=== PATIENT | male | born 1950 | race Two or more races ===

== ENCOUNTER 2020-12-16 10:06 | Emergency (ER) | payer OTHER ==
[~2020-12-16] VITALS: Ht 182.9 cm; Wt 68.0 kg
[2020-12-16] MEDS ORDERED: ZOCOR20 MG (10:30)
== END 2020-12-16 19:43 | disposition home or self-care (01) ==
LOC: ER 10:06
DX: K62.5 Hemorrhage of anus and rectum (principal)

== ENCOUNTER 2021-10-17 10:20 | Outpatient (CLI) | payer OTHER ==
[~2021-10-17 10:20] MED LIST: ZOCOR20 MG
== END 2021-10-17 10:30 | disposition home or self-care (01) ==
LOC: PPH VACUNA 10:20
PROVIDERS: ATTEND Emergency Medicine Pediatric Emergency Medicine
DX: Z23 Encounter for immunization (principal)

== ENCOUNTER 2024-07-08 12:57 | Outpatient (CLI) | payer OTHER | END 2024-07-08 13:06 | disposition home or self-care (01) | LOC: RAD 12:57 | PROVIDERS: ATTEND Internal Medicine | DX: G57.62 Lesion of plantar nerve, left lower limb (principal) ==

== ENCOUNTER 2024-12-28 15:19 | Inpatient (IN) | payer OTHER ==
[~2024-12-28] VITALS: Ht 185.4 cm; Wt 72.6 kg
--- NOTE | 2024-12-28 16:16 | NUR ---
PACIENTE ALOERTA Y ORIENTADO X 3. REFIERE PRESENTO FIEBRE EN LA MANANA Y SE COMUNICO CON DR Adam BAUMANN QUIEN LE INDICO VISITAR ER. REFIERE DOLRO DE SHOBHA Y DEBILIDAD.
[2024-12-28] MEDS ORDERED: TAMS0.4C PO (16:20)
[2024-12-28] MEDS ORDERED: PEPCID AC10 MG (16:20)
[2024-12-28] MEDS ORDERED: ZYRTEC10 MG PO (16:20)
[2024-12-28] MEDS ORDERED: CEFTRIAXONE SODIUM 2,000 MG VIAL IV ONE (17:30)
[2024-12-28 18:25] LABS: BASO % 0.3 % (0.1-1.2); EOS # 0.02 (0.04-0.54); EOS % 0.1 % (0.7-7.0); LYMPH # 0.72 (1.18-3.74); LYMPH % 4.7 % (19.3-53.1); MEAN PLATELET VOLUME 11.60 fl (9.4-12.4); MONO # 1.26 (0.24-0.82); MONO % 8.3 % (4.7-12.5); NEUT # 13.14 (1.56-6.13); NEUT % 86.2 % (34.0-71.1); RED CELL DISTRIBUTION WIDTH 14.1 % (11.6-14.4)
--- NOTE | 2024-12-28 18:26 | NUR ---
SE ORIENTA PTE SOBRE [place] MEDICO Y PTE REFIERE ENTENDER. SE TORIE MUESTRAS DE LAB Y SE ADMINISTRAN MEDICAMENTOS DWIGHT ORDEN MEDICA BAJO MEDIDAS ASEPTICAS. SE UBICA PTE EN K1.
[2024-12-28 18:47] LABS: INR 1.05
[2024-12-28 19:02] LABS: ALT/SGPT 79.0 U/L (12-78); AST/SGOT 65.0 U/L (15-37); BILIRUBIN TOTAL 0.69 mg/dL (0.3-1.2); BUN CREA RATIO 29.0 (7.0-25.0); CREATININE SERUM 0.98 mg/dL (0.70-1.30); GFR 74.36; GLOBULINA 3.1 G/DL (2.4-3.5); GLUCOSE FASTING 132.0 mg/dL (65-100); OSMOLALITY SERUM 292.0 MOSM/KG (275-295)
[2024-12-28 19:39] LABS: ERYTHROCYTE SEDIMENTATION RATE 12 mm/hr (0-20)
[2024-12-28] MEDS ORDERED: FAMOTIDINE/PF 20 MG in 0.9 % SODIUM CHLORIDE 8 ML IV PUSH SCH (22:13)
[2024-12-28] MEDS ORDERED: 0.9 % SODIUM CHLORIDE 1,000 ML IV SCH (22:15)
[2024-12-28] MEDS ORDERED: ACETAMINOPHEN 500 MG GEL..CAP PO PRN (22:15)
[2024-12-28] MEDS ORDERED: VANCOMYCIN HCL 1,000 MG VIAL IV SCH (22:24)
[2024-12-29] MEDS ORDERED: PIPERACILLIN/TAZOBACTAM SODIUM 3.375 GM in DEXTROSE 5 % IN WATER 100 ML IV SCH
[2024-12-29 01:51] VITALS: BP 125/67; O2SAT 95
[2024-12-29 02:42] LABS: URINE APPEARANCE Clear; URINE BILIRRUBIN Negative (NEGATIVE); URINE BLOOD NHT; URINE COLOR Yellow; URINE GLUCOSE Negative (NEGATIVE); URINE KETONE 15 (NEGATIVE); URINE LEUKOCYTE Negative; URINE NITRATE Negative; URINE PROTEIN Trace (NEGATIVE); URINE UROBILINOGEN 1.0 E.U./dl
[2024-12-29 02:45] LABS: URINE BACTERIA 13.1 uL (0.0-1933); URINE EPITHELIAL CELLS 7.6 uL (0.0-38.8); URINE RBC 26.3 uL (0.0-20.8); URINE WBC 10.4 uL (0.0-23.2)
[2024-12-29 02:47] LABS: URINE CAST 0.00 uL (0.0-1.40)
[2024-12-29 02:50] VITALS: BP 146/64; O2SAT 97
[2024-12-29 08:00] VITALS: BP 111/68; O2SAT 95
[2024-12-29] MEDS ORDERED: CEFTRIAXONE SODIUM 2,000 MG in 0.9 % SODIUM CHLORIDE 100 ML IV SCH (09:00)
[2024-12-29] MEDS ORDERED: ENOXAPARIN SODIUM 40 MG/0.4 ML SYRINGE SUBCUTANEO SCH (09:00)
[2024-12-29] MEDS ORDERED: TAMSULOSIN HCL 0.4 MG CAP PO SCH (09:00)
[2024-12-29] MEDS ORDERED: PIPERACILLIN/TAZOBACTAM SODIUM 3.375 GM in 0.9 % SODIUM CHLORIDE 100 ML IV SCH (12:52)
[2024-12-29 16:00] VITALS: BP 121/69; O2SAT 97
[2024-12-29] MEDS ORDERED: SILVER SULFADIAZINE 50 GM,ZINC OXIDE 30 GM TOP SCH (17:00)
[2024-12-29] MEDS ORDERED: SIMVASTATIN 10 MG TABLET PO SCH (17:00)
[2024-12-29] MEDS ORDERED: VANCOMYCIN HCL 1,000 MG VIAL IV SCH (21:00)
[2024-12-30 07:48] LABS: BASO % 0.6 % (0.1-1.2); EOS # 0.13 (0.04-0.54); EOS % 1.8 % (0.7-7.0); LYMPH # 0.80 (1.18-3.74); LYMPH % 11.2 % (19.3-53.1); MEAN PLATELET VOLUME 11.90 fl (9.4-12.4); MONO # 1.03 (0.24-0.82); NEUT # 5.12 (1.56-6.13); NEUT % 71.4 % (34.0-71.1); RED CELL DISTRIBUTION WIDTH 14.2 % (11.6-14.4)
[2024-12-30 07:57] LABS: MONO % 14.4 % (4.7-12.5)
[2024-12-30 08:34] LABS: ALT/SGPT 78.0 U/L (12-78); AST/SGOT 42.0 U/L (15-37); BILIRUBIN TOTAL 0.5 mg/dL (0.3-1.2); BUN CREA RATIO 13.0 (7.0-25.0); CREATININE SERUM 1.04 mg/dL (0.70-1.30); GFR 69.43; GLOBULINA 2.9 G/DL (2.4-3.5); GLUCOSE FASTING 111.0 mg/dL (65-100); OSMOLALITY SERUM 288.0 MOSM/KG (275-295)
[2024-12-30 08:38] LABS: PROSTATIC SPECIFIC ANTIGEN 10.4 NG/ML (0.010-4.00)
[2024-12-30 08:40] LABS: BAND MAN 6.0 %; EOSINOPHIL MAN 1.0 %; LYMPHOCYTE MAN 19.0 %; MONOCYTE MAN 6.0 %; NEUTROPHILS MAN 65.0 %
[2024-12-30 10:56] VITALS: BP 104/69; O2SAT 97
[2024-12-30] MEDS ORDERED: CLOTRIMAZOLE/BETAMETHASONE DIP 15 GM TUBE TOP SCH (17:00)
[2024-12-30] MEDS ORDERED: TAMSULOSIN HCL 0.4 MG CAP PO SCH (21:00)
[2024-12-30 21:54] VITALS: BP 143/82
[2024-12-31 02:00] VITALS: BP 106/66; O2SAT 96
[2024-12-31 08:53] VITALS: BP 104/66; O2SAT 98
[2024-12-31] MEDS ORDERED: LACTOBACILLUS ACIDOPHILUS 1 CAP CAP PO SCH (13:00)
[2024-12-31 17:00] VITALS: BP 109/69; O2SAT 95
[2025-01-01 02:47] VITALS: BP 131/74
[2025-01-01 07:04] LABS: BASO % 1.3 % (0.1-1.2); EOS # 0.24 (0.04-0.54); EOS % 5.2 % (0.7-7.0); LYMPH # 0.87 (1.18-3.74); LYMPH % 18.8 % (19.3-53.1); MEAN PLATELET VOLUME 11.50 fl (9.4-12.4); MONO # 0.71 (0.24-0.82); NEUT # 2.72 (1.56-6.13); NEUT % 58.8 % (34.0-71.1); RED CELL DISTRIBUTION WIDTH 14.2 % (11.6-14.4)
[2025-01-01 07:20] LABS: MONO % 15.3 % (4.7-12.5)
[2025-01-01 08:05] VITALS: BP 146/70; O2SAT 97
[2025-01-01] MEDS ORDERED: HYDROCORTISONE 2.5% 20 GM TUBE RECTAL SCH (09:00)
[2025-01-01] MEDS ORDERED: CHOLESTYRAMINE/ASPARTAME LIGHT 4 G/PKT PACKET PO SCH (09:00)
[2025-01-01] MEDS ORDERED: LACTOBACILLUS ACIDOPHILUS 1 CAP CAP PO SCH (09:00)
[2025-01-01] MEDS ORDERED: TAMSULOSIN HCL 0.4 MG CAP PO SCH (17:00)
[2025-01-01 17:12] VITALS: BP 127/71
[2025-01-02 01:34] VITALS: BP 113/66; O2SAT 96
[2025-01-02 08:45] LABS: ALT/SGPT 120.0 U/L (12-78); AST/SGOT 81.0 U/L (15-37); BILIRUBIN TOTAL 0.6 mg/dL (0.3-1.2); BUN CREA RATIO 23.0 (7.0-25.0); CREATININE SERUM 0.9 mg/dL (0.70-1.30); GFR 82.04; GLOBULINA 2.8 G/DL (2.4-3.5); GLUCOSE FASTING 90.0 mg/dL (65-100); OSMOLALITY SERUM 289.0 MOSM/KG (275-295)
[2025-01-02 09:20] VITALS: BP 93/54
[2025-01-02 16:44] VITALS: BP 116/74
[2025-01-03 00:43] VITALS: BP 125/75; O2SAT 97
[2025-01-03 09:00] VITALS: BP 117/72
[2025-01-03 09:06] LABS: BASO % 1.1 % (0.1-1.2); EOS # 0.20 (0.04-0.54); EOS % 3.1 % (0.7-7.0); LYMPH # 0.93 (1.18-3.74); LYMPH % 14.2 % (19.3-53.1); MEAN PLATELET VOLUME 10.90 fl (9.4-12.4); MONO # 0.67 (0.24-0.82); MONO % 10.3 % (4.7-12.5); NEUT # 4.61 (1.56-6.13); NEUT % 70.5 % (34.0-71.1); RED CELL DISTRIBUTION WIDTH 13.8 % (11.6-14.4)
[2025-01-03 09:09] LABS: ERYTHROCYTE SEDIMENTATION RATE 41 mm/hr (0-20)
[2025-01-03] MEDS ORDERED: AVIDOXY100 MG PO (12:28)
[2025-01-03] MEDS ORDERED: INTESTINEX680 M1 PO (12:29)
[2025-01-03] MEDS ORDERED: CHOLESTYRAMINE L4 GM PO (12:29)
[2025-01-03] MEDS ORDERED: CLOTRIMAZOLE-BE15 G1 TOP (12:31)
[2025-01-03] MEDS ORDERED: HYDROCORTISO453.6 G1 RECTAL (12:32)
== END 2025-01-03 14:43 | disposition home or self-care (01) | DRG 603 ==
LOC: ER 15:19 → SURG 22:46 → MEDI 22:46 → SEC-K 22:46 → SURG 12-29 00:09 → MEDI 12-30 15:48
PROVIDERS: General Practice; Internal Medicine Infectious Disease; Preventive Medicine Public Health & General Preventive Medicine; ADMIT Internal Medicine; ATTEND Internal Medicine
PROC: BH47ZZZ Ultrasonography of Upper Extremity (ICD-10-PCS; principal; 2024-12-28)
PROC: BW21ZZZ Computerized Tomography (CT Scan) of Abdomen and Pelvis (ICD-10-PCS; 2024-12-28)
DX: L03.317 Cellulitis of buttock (principal); R65.10 Systemic inflammatory response syndrome (SIRS) of non-infectious origin without acute organ dysfunction; L02.31 Cutaneous abscess of buttock; D72.829 Elevated white blood cell count, unspecified; I10 Essential (primary) hypertension

== ENCOUNTER → 2025-01-26 13:57 | Outpatient (CLI) | payer OTHER ==
[~2025-01-26 13:57] MED LIST changes: +ALAWAY10 ML OPHT; +AVIDOXY100 MG PO; +BRINZOLAMIDE; +CHOLESTYRAMINE L4 GM PO; +CLOTRIMAZOLE-BE15 G1 TOP; +HYDROCORTISO453.6 G1 RECTAL; +INTESTINEX680 M1 PO; +NASAL MIST126 ML; +NEURIN; +PEPCID AC10 MG; +SIMETHICONE80 MG PO; +TAMS0.4C PO; +VITAMIN D310 MC5; +ZYRTEC10 MG PO
== END | disposition home or self-care (01) ==
LOC: EKG 13:57
PROVIDERS: ATTEND Surgery
DX: I10 Essential (primary) hypertension (principal)

== ENCOUNTER 2025-02-04 06:00 | Day surgery (SDC) | payer OTHER ==
[2025-02-04] MEDS ORDERED: METRONIDAZOLE/SODIUM CHLORIDE 500 MG/100 ML PIGGYBACK IV ONE ×2 (06:36→07:45)
[2025-02-04] MEDS ORDERED: CEFTRIAXONE SODIUM 2,000 MG VIAL ONE (06:36)
[2025-02-04] MEDS ORDERED: DIBUCAINE 30 GM TUBE ONE (06:59)
[2025-02-04] MEDS ORDERED: BUPIVACAINE HCL/MPF 0.5% 30ML VIAL ONE (06:59)
[2025-02-04] MEDS ORDERED: HEMOSTATIC MATRIX 1 KIT KIT TOP ONE (06:59)
[2025-02-04] MEDS ORDERED: CHLORHEXIDINE GLUCONATE 120 ML BOTTLE TOP ONE ×2 (07:00→07:45)
[2025-02-04] MEDS ORDERED: LIDOCAINE HCL 1%/EPINEPHRINE 20ML VIAL IJ ONE ×2 (07:00→07:45)
[2025-02-04] MEDS ORDERED: DIBUCAINE 15 GM OINT..GM. TUBE RECTAL ONE (07:45)
[2025-02-04] MEDS ORDERED: BUPIVACAINE HCL/PF 0.25% 30ML VIAL InF ONE (07:45)
[2025-02-04] MEDS ORDERED: CEFTRIAXONE SODIUM 2,000 MG VIAL IV ONE (07:45)
[2025-02-04] MEDS ORDERED: TAMSULOSIN HCL 0.4 MG CAP PO ONE ×2 (08:30→10:18)
[2025-02-04] MEDS ORDERED: OXYCODONE HCL5 MG PO (08:33)
== END 2025-02-04 15:30 | disposition home or self-care (01) ==
LOC: CIR.AMB 06:00
PROVIDERS: ATTEND Surgery
DX: K64.2 Third degree hemorrhoids (principal); K64.4 Residual hemorrhoidal skin tags; K62.5 Hemorrhage of anus and rectum; Z91.013 Allergy to seafood; Z88.6 Allergy status to analgesic agent